=== PATIENT | male | born 1950 | race Caucasian/White ===

== ENCOUNTER 2018-08-05 05:50 | Day surgery (SDC) | payer MEDICARE, BC ==
[2018-08-04 10:53] LABS: HEMATOCRIT 45.5 % (42.0-54.0); HEMOGLOBIN 16.7 g/dL (13.5-17.5); MCH 32.2 pg (26.0-34.0); MCHC 36.7 g/dL (31.0-37.0); MCV 87.7 fL (80.0-100.0); MEAN PLATELET VOLUME 9.2 fL (7.4-10.4); RBC 5.19 10x6/uL (4.20-6.10); WBC 7.5 10x3/uL (4.8-10.8)
[2018-08-04 11:13] LABS: ANION GAP 16.3 mmol/L (8-16); CALCIUM 9.2 mg/dL (8.5-10.1); CARBON DIOXIDE 24.4 mmol/L (21.0-32.0); CREATININE - SERUM 1.6 mg/dL (0.6-1.3); POTASSIUM - SERUM 3.7 mmol/L (3.5-5.1)
[~2018-08-05] VITALS: Ht 182.9 cm; Wt 127.9 kg
[~2018-08-05 05:50] MED LIST: ACTOS45 MG PO; ASPIRIN 81 MG E81 MG PO; FIBRICOR105 MG; GLIPIZIDE10 MG PO; GLUCOTROL 5 MG T5 MG OR; HYTRIN1 MG PO; LANTUS INSULIN10 ML SC; LIPITOR80 MG; LISINOPRIL2.5 MG OR; NIACIN500 MG PO; NORCO 10/325 TA1 TA1 PO; NORVASC10 MG PO; NOVOLOG100 U/M1 SC; OMEGA-3100 MG; OXYBUTYNIN CHLOR5 MG; PRILOSEC20 MG PO; PRINZIDE 20/12.1 TAB PO; TOPROL XL50 MG PO; VIAGRA100 MG PO; ZESTORETIC 20-1 EACH PO; ZESTRIL40 MG PO; ZOLOFT100 MG PO
[2018-08-05] MEDS ORDERED: FLUNISOLIDE29 MCG NASAL (05:51)
[2018-08-05 06:04] VITALS: BP 147/88; Ht 182.9 cm; Wt 127.9 kg
--- NOTE | 2018-08-05 10:58 | OP ---
PATIENT NAME: TULIO GÓMEZ MEDICAL RECORD: [id number] :46 LOCATION:[facility] ADMISSION DATE: SURGEON: DAGO HURTADO MD DATE OF OPERATION: 08/05/2018 SURGEON: Dago Hurtado MD ANESTHESIA: General anesthesia by Michael Appiah CRNA PROCEDURES: Cystoscopy, direct vision internal urethrotomy, transrectal ultrasound and prostate biopsy. FINDINGS: Bulbar urethral stricture, which I incised. Nonobstructive bilateral lateral lobes. Bladder neck contracture. A 26 mL prostate with intraprostatic stones. No hypoechoic areas. SPECIMENS: Prostate biopsy cores. ESTIMATED BLOOD LOSS: Minimal. CLINICAL HISTORY: This is a 67-year-old male, who was referred by Dr. Valle for an elevated PSA level of 4.03. FAMILY HISTORY: Negative for BPH and prostate cancer. He does have trouble voiding with a slow urinary flow and dribbling postvoid. He has been on terazosin for 2-3 years and he is getting side effects with terazosin. He has a history of sleep apnea for which he uses oxygen at night. He was in [place] with the [employer] from [id number] and he was exposed to Agent [place]. He is here to have a transrectal ultrasound and prostate biopsy. I will also be performing cystoscopy to check the configuration of the prostate. His IPPS score is 17 and his quality of life score is 4. He is not allergic to any medications. He was given Ancef party plan salesperson to the OR. DESCRIPTION OF PROCEDURE: Initially, we placed the patient under TIVA. He was then placed in the dorsal lithotomy position. He was continuously restless as he would become apneic from the sleep apnea and then he would move around to get himself breathing again. I performed cystoscopy initially with a 17-[place]izen [place] cystoscope with 30-degree lens. We encountered a tight bulbar urethral stricture, which the scope could not pass through. I then switched to a 21-[place]izen [place] cystoscope, and through the lumen of the scope I passed a Sensor wire through the stricture lumen into the bladder. The cystoscope was then removed. The patient's degree of restlessness would not allow me to do any precise work and therefore he was converted to general anesthesia. We then placed in the optic urethrotome and using the cold knife at the 12 o'clock position, the stricture was incised through. Once we got through the bulbar urethral stricture, the prostatic urethra shows no encroachment into the lumen from the lateral lobes. However, he has a very tall elevated bladder neck. In my view, if the urethral stricture incision does not resolve his bladder outlet obstruction, then he probably should have a bladder neck incision. From what I could see with a 12-degree scope, I could not see any bladder tumors in the bladder. The scope was then removed. The Sensor guidewire was left in the urethra. I decided not to put a catheter at this time as doing a prostate biopsy may result in the needle passing through this catheter and creating damage. We then switched to performing the transrectal ultrasound. The probe OPERATIVE REPORT [id number] TULIO GÓMEZ was introduced into the rectum. Prostate size measurements were obtained. We obtained a size of 26 mL. There are intraprostatic stones within the prostate. Sextant biopsies were obtained with at least 3 cores from each sextant. Once we obtained all the cores, the procedure was terminated from the view of the prostate biopsy. I switched gloves over the Sensor wire, I inserted a 16[place] tip catheter into the bladder. Once the catheter was fully in the bladder, the balloon was inflated with 10 cc of sterile water. The Sensor wire was removed entirely. The catheter was put to bag drainage. I will see the patient in followup next week to remove the catheter and to go over the pathology results with him. TRANSINT:[id number] Voice Confirmation ID: [id number] DOCUMENT ID: [id number] DAGO HURTADO MD at 1058 CC: [id number] DICTATION DATE: 08/05/18841 MANAGER GREEN: 08/05/18957 PRE [facility] [address] [place] [id number]
--- NOTE | 2018-08-05 16:44 | NUR ---
1110 DRESSED, AWAKE, & ALERT. GIVEN DISCHARGE INFORMATION INCLUDING: MED REC, RX'S 2: TYLENOL #3 & OXYBUTYNIN 5MG, RTC APPT., [facility] OUT PATIENT D/C INSTRUCTIONS, & POSTCYSTOSCOPY & HOW TO CARE FOR LEGER CATHETER, MALE D/C INSTRUCTIONS. PT & VOICED UNDERSTANDING. TO PRIVATE CAR PER WHEELCHAIR BY VOLUNTEER. HOME WITH , ARDEN GÓMEZ. Hayele BUCHANAN R.N.
== END 2018-08-05 11:10 | disposition home or self-care (01) ==
LOC: D.OPS 05:50 → D.PAN 13:00 → D.OPS 13:00 → D.PAN 13:15
PROVIDERS: Anesthesiology; ATTEND Urology
DX: C61 Malignant neoplasm of prostate (principal); N35.912 Unspecified bulbous urethral stricture, male; N32.0 Bladder-neck obstruction; N42.0 Calculus of prostate; G47.30 Sleep apnea, unspecified; Z01.812 Encounter for preprocedural laboratory examination

== ENCOUNTER → 2018-08-27 09:39 | Outpatient (CLI) | payer MEDICARE, BC ==
[2018-08-05 06:04] VITALS: BMI 38.3
[~2018-08-27 09:39] MED LIST changes: +FLUNISOLIDE29 MCG NASAL
== END | disposition home or self-care (01) ==
LOC: D.NM 09:39
PROVIDERS: ATTEND Urology
DX: C61 Malignant neoplasm of prostate (principal)

== ENCOUNTER 2018-10-17 17:38 | Inpatient (IN) | payer MEDICARE, BC ==
[2018-10-17] MEDS ORDERED: NIASPAN500 MG PO (17:53)
[2018-10-17] MEDS ORDERED: IBUPROFEN800 MG PO (17:53)
[2018-10-17] MEDS ORDERED: TRILIPIX135 MG PO (17:54)
[2018-10-17] MEDS ORDERED: ALBUTEROL SULF8.5 GM INH (17:54)
[2018-10-17] MEDS ORDERED: GLUCOTROL 5 MG T5 MG PO (17:54)
[2018-10-17] MEDS ORDERED: LIPITOR80 MG PO (17:55)
[2018-10-17] MEDS ORDERED: ALIGN4 MG PO (17:55)
[2018-10-17 18:34] LABS: BASOPHILS 0.1 % (0-2); EOSINOPHILS 0.3 % (0-7); HEMATOCRIT 42.1 % (42.0-54.0); HEMOGLOBIN 15.3 g/dL (13.5-17.5); IMMATURE GRANULOCYTES 0.2 % (0-5); MCHC 36.3 g/dL (31.0-37.0); MCV 88.1 fL (80.0-100.0); MEAN PLATELET VOLUME 9.7 fL (7.4-10.4); MONOCYTES 8.3 % (2-11); NEUTROPHILS 78.1 % (40-80); PLATELET COUNT 144 10x3/uL (130-400); RBC 4.78 10x6/uL (4.20-6.10); RDW 12.8 % (11.5-14.5); WBC 11.5 10x3/uL (4.8-10.8)
[2018-10-17 18:50] LABS: ALKALINE PHOSPHATASE 52 U/L (46-116); ALT (SGPT) 33 U/L (10-68); BILIRUBIN - TOTAL 0.67 mg/dL (0.2-1.3); CALC OSMOLALITY 273 mosm/kg (275-300); CALCIUM 9.3 mg/dL (8.5-10.1); CARBON DIOXIDE 27.3 mmol/L (21.0-32.0); CHLORIDE - SERUM 95 mmol/L (98-107); CREATININE - SERUM 1.6 mg/dL (0.6-1.3); GLUCOSE 190 mg/dL (74-106); POTASSIUM - SERUM 3.2 mmol/L (3.5-5.1); SODIUM 133 mmol/L (136-145); UREA NITROGEN 21 mg/dL (7-18); eGFR NON AFRICAN AMERICAN 46 mL/min (90-120)
[2018-10-17 19:00] LABS: CKMB 2.4 U/L (0.0-3.6); CREATINE KINASE 330 UL (21-232); PRO BNP 459 pg/mL (0-125)
[2018-10-17 19:01] LABS: TROPONIN-I < 0.017 ng/mL (0.000-0.060)
--- NOTE | 2018-10-17 19:02 | NUR ---
HAND OFF REPORT GIVEN TO JENNIFER QUICK
[2018-10-17 19:29] LABS: APPEARANCE CLEAR (CLEAR); BILIRUBIN NEGATIVE (NEGATIVE); COLOR YELLOW (YELLOW); GLUCOSE 100 mg/dL (NEGATIVE); KETONE NEGATIVE (NEGATIVE); NITRITE NEGATIVE (NEGATIVE); PROTEIN 2+ mg/dL (NEGATIVE); UROBILINOGEN NORMAL (NORMAL)
[2018-10-17 19:30] LABS: RED CELLS - URINE 0-5 /hpf (0-5); WHITE CELLS - URINE 0-5 /hpf (0-5)
[2018-10-17 19:31] LABS: AMORPHOUS SEDIMENT <1+ /lpf (NONE SEEN); BACTERIA MODERATE /hpf (NONE SEEN); EPITHELIAL CELLS 0-5 /hpf (0-5); GRANULAR CAST 0-5 /lpf (NONE SEEN)
--- NOTE | 2018-10-17 20:17 | NUR ---
PT GIVEN BLANKETS.
[2018-10-18 01:08] VITALS: BP 175/82; BMI 38.2
[2018-10-18 04:51] VITALS: BP 144/83
--- NOTE | 2018-10-18 07:15 | NUR ---
PATIENT RECIEVED FROM PREVIOUS SHIFT RESTING IN BED. NO FEVER AT THIS TIME. UNABLE TO ADMINISTER S/S INSULIN DUE TO UNAVAILABLE FROM PHARMACY.
[2018-10-18 07:28] LABS: PRO BNP 481 pg/mL (0-125)
[2018-10-18 07:36] LABS: TROPONIN-I < 0.017 ng/mL (0.000-0.060)
[2018-10-18 07:52] LABS: APTT 39.8 SECONDS (22.8-39.4); INR 1.2 (0.85-1.17); PROTIME 14.7 SECONDS (11.6-15.0)
[2018-10-18 07:53] LABS: D-DIMER-QUANTITATIVE 0.82 ug/mLFEU (0.20-0.54)
[2018-10-18 08:00] VITALS: BP 122/60
[2018-10-18 08:14] VITALS: BMI 38.1
[2018-10-18 09:50] VITALS: BMI 38.1
[2018-10-18 12:57] VITALS: BP 120/64
[2018-10-18 15:45] VITALS: BP 103/46
--- NOTE | 2018-10-18 19:35 | NUR ---
PATIENT RESTING IN BED WITH GUEST AT BEDSIDE. PATIENT DENIES NEEDS AT THIS TIME. BED IN LOWEST POSITION AND CALL LIGHT WITHIN REACH. ENCOURAGED THE PATIENT TO CALL IF HE HAS NEEDS. WILL CONTINUE TO MONITOR.
[2018-10-18 20:00] VITALS: BP 138/62
[2018-10-19] VITALS: BP 132/72
[2018-10-19 06:05] LABS: BASOPHILS 0.1 % (0-2); EOSINOPHILS 0.4 % (0-7); HEMATOCRIT 40.4 % (42.0-54.0); HEMOGLOBIN 14.6 g/dL (13.5-17.5); IMMATURE GRANULOCYTES 0.4 % (0-5); LYMPHOCYTES 13.3 % (15-50); MCH 31.5 pg (26.0-34.0); MCHC 36.1 g/dL (31.0-37.0); MCV 87.3 fL (80.0-100.0); MEAN PLATELET VOLUME 9.5 fL (7.4-10.4); MONOCYTES 7.9 % (2-11); NEUTROPHILS 77.9 % (40-80); RBC 4.63 10x6/uL (4.20-6.10); RDW 12.9 % (11.5-14.5); WBC 11.1 10x3/uL (4.8-10.8)
[2018-10-19 06:11] LABS: PLATELET COUNT 183 10x3/uL (130-400)
[2018-10-19 06:38] LABS: ALBUMIN 2.4 g/dL (3.4-5.0); ANION GAP 11.3 mmol/L (8-16); BILIRUBIN - TOTAL 0.28 mg/dL (0.2-1.3); CALCIUM 8.8 mg/dL (8.5-10.1); CARBON DIOXIDE 28.2 mmol/L (21.0-32.0); CREATININE - SERUM 1.7 mg/dL (0.6-1.3); POTASSIUM - SERUM 3.5 mmol/L (3.5-5.1)
--- NOTE | 2018-10-19 07:00 | NUR ---
RECEIVED REPORT. ASSUMED CARE OF PATIENT. CALL LIGHT WITHIN REACH. PATIENT RESTING WITH EYES CLOSED. SNORING. PATIENT EASILY AROUSED. NO IV FLUIDS, RIGHT AC SALINE LOCKED. PATIENT WITH FEMALE VISITOR IN CHAIR AT BEDSIDE. NO DISTRESS.
--- NOTE | 2018-10-19 09:30 | NUR ---
FSBS 256. 100 UNITS LANTUS ADMINISTERED ORDERED. NO DISTRESS.
[2018-10-19 09:41] VITALS: BP 149/81
--- NOTE | 2018-10-19 11:11 | MORECARE ---
CASE MANAGEMENT DISCHARGE SUMMARY PATIENT: TULIO GÓMEZ UNIT: [id number] ADM DATE: 10/17/18 AGE: 67 : 48 SEX: M ROOM/BED: D.1213 AUTHOR: SANKET BELL PHYSICIAN: REFERRING PHYSICIAN: MAEVE LANDIS MD DATE OF SERVICE: 10/19/18 Discharge Plan Patient Name: TULIO GÓMEZ [facility] [facility] 1950 Planned Disposition: Home Anticipated Discharge Date: Discharge Date: Expected LOS: Initial Reviewer: MIKE Initial Review Date: 10/19/2018 Generated: 10/19/18 12:10 pm DCPIA - Discharge Planning Initial Assessment Updated by [email or web address]: Stephanie Grider on 10/19/18 11:09 am * Is the patient Alert and Oriented? Yes * How many steps to enter\exit or inside your home? NA * PCP NIECY * Pharmacy [facility] * ADLs Independent * Equipment Walker * List name and contact numbers for known caregivers / representatives who currently or will assist patient after discharge: ARDEN [phone] * Verbal permission to speak to the caregivers and representatives has been obtained from the patient. Yes * Community resources currently utilized None * Additional services required to return to the preadmission environment? No * Can the patient safely return to the preadmission environment? Yes * Has this patient been hospitalized within the prior 30 days at any hospital? No Patient Name: TULIO GÓMEZ Page 23060 at 1111 All edits/amendments must be made on the electronic document DICTATION DATE: 10/19/18 1110 DATABASE PROGRAMMER: JAYME 10/19/18 1110 RPT#: [id number] DC DATE: STATUS: ADM IN [facility] [address] [place] [address] END OF REPORT
--- NOTE | 2018-10-19 11:17 | MORECARE ---
CASE MANAGEMENT DISCHARGE SUMMARY PATIENT: TULIO GÓMEZ UNIT: [id number] ADM DATE: 10/17/18 AGE: 67 : 48 SEX: M ROOM/BED: D.1213 AUTHOR: ARABELLADOC PHYSICIAN: REFERRING PHYSICIAN: MAEVE LANDIS MD DATE OF SERVICE: 10/19/18 Discharge Plan Patient Name: TULIO GÓMEZ Facility: [facility]:[place] : 1950 Planned Disposition: Home Anticipated Discharge Date: Discharge Date: Expected LOS: Initial Reviewer: [email or web address] Initial Review Date: 10/19/2018 Generated: 10/19/18 12:17 pm Comments DCP- Discharge Planning Updated by [email or web address]: Stephanie Grider on 10/19/18 10:[address] Patient Name: TULIO GÓMEZ Admission Status: ER Accout number: [id number] Admission Date: 10-17-2018 : 1950 Admission Diagnosis: Attending: MAEVE LANDIS Current LOS: 2 Anticipated DC Date: Planned Disposition: Home Primary Insurance: MEDICARE A & B Discharge Planning Comments: CM met with patient about discharge planning. CM explained CM role and verbal consent was given to do dc assessment. CM educated on Home Health, DME and rehab services that are available. Patient states hIs discharge plan is to return to home with .. States home environment is safe discharge. Denies any discharge planning needs at this time.. has home 02 thru . States will drive him home upon discharge. CM will continue to follow and assist as needed with discharge planning needs. Auto Specialty Services Manager: Stephanie Grider DCPIA - Discharge Planning Initial Assessment Updated by [email or web address]: Stephanie Grider on 10/19/18 11:09 am * Is the patient Alert and Oriented? Yes * How many steps to enter\exit or inside your home? NA * PCP NIECY * Pharmacy [facility] * ADLs Independent * Equipment Walker * List name and contact numbers for known caregivers / representatives who currently or will assist patient after discharge: ARDEN [phone] * Verbal permission to speak to the caregivers and representatives has been obtained from the patient. Yes * Community resources currently utilized None * Additional services required to return to the preadmission environment? No * Can the patient safely return to the preadmission environment? Yes * Has this patient been hospitalized within the prior 30 days at any hospital? No Last DP export: 10/19/18 10:11 a Patient Name: TULIO GÓMEZ Page 36108 at 1117 All edits/amendments must be made on the electronic document DICTATION DATE: 10/19/181116 KNIFE CHANGER: JAYME 10/19/181116 RPT#: [id number] DC DATE: STATUS: ADM IN [facility] [address] [place] [address] END OF REPORT
--- NOTE | 2018-10-19 11:33 | NUR ---
FSBS 287. 6 UNITS HUMULIN R ADMINISTERED PER SLIDING SCALE. TYLENOL ADMINISTERED FOR HEADACHE AT THIS TIME. NO DISTRESS. CALL LIGHT YUSEF EUGENE.
[2018-10-19 13:31] VITALS: BP 145/76
--- NOTE | 2018-10-19 16:40 | NUR ---
FSBS 296. 6 UNITS HUMULIN REGULAR INSULIN ADMINISTERED PER SLIDING SCALE. NO DISTRESS. DIABETES COUNSELING PROVIDED TO PATIENT. CALL LIGHT WITHIN REACH. NO DISTRESS.
[2018-10-19 17:30] VITALS: BP 155/83
--- NOTE | 2018-10-19 19:10 | NUR ---
PATIENT RESTING IN BED WITH GUEST AT BEDSIDE AND NO S/S OF DISTRESS. PATIENT DENIES NEEDS AT THIS TIME. BED IN LOWEST POSITION AND CALL LIGHT WITHIN REACH. ENCOURAGED THE PATIENT TO CALL IF HE HAS NEEDS. WILL CONTINUE TO MONITOR.
[2018-10-19 20:00] VITALS: BP 149/83
[2018-10-20] VITALS: BP 106/61
[2018-10-20 04:00] VITALS: BP 135/63
[2018-10-20 06:23] LABS: BASOPHILS 0.1 % (0-2); HEMATOCRIT 39.1 % (42.0-54.0); HEMOGLOBIN 13.5 g/dL (13.5-17.5); IMMATURE GRANULOCYTES 0.4 % (0-5); LYMPHOCYTES 19.5 % (15-50); MCH 30.8 pg (26.0-34.0); MCHC 34.5 g/dL (31.0-37.0); MEAN PLATELET VOLUME 9.5 fL (7.4-10.4); MONOCYTES 8.3 % (2-11); NEUTROPHILS 68.7 % (40-80); PLATELET COUNT 203 10x3/uL (130-400); RBC 4.38 10x6/uL (4.20-6.10); RDW 13.2 % (11.5-14.5)
[2018-10-20 06:35] LABS: ALBUMIN 2.3 g/dL (3.4-5.0); ANION GAP 10.6 mmol/L (8-16); BILIRUBIN - TOTAL 0.25 mg/dL (0.2-1.3); CALCIUM 8.6 mg/dL (8.5-10.1); CARBON DIOXIDE 27.9 mmol/L (21.0-32.0); CREATININE - SERUM 1.3 mg/dL (0.6-1.3); MCV 89.3 fL (80.0-100.0); POTASSIUM - SERUM 3.5 mmol/L (3.5-5.1); PROTEIN - SERUM 6.4 g/dL (6.4-8.2)
[2018-10-20 07:23] VITALS: BP 132/66
--- NOTE | 2018-10-20 12:35 | NUR ---
ALERT AND ORIENTED X4. SITTING UP IN BED. SPOUSE AT BEDSIDE. PATIENT REQUESTING TO BE DISCHARGED. NOTIFY DOCTOR OF PATIENT REQUEST. INFORM PATIENT AND FAMILY DOCTOR CURRENTLY REVIEWING CHART. DENIES ANY OTHER NEEDS AT THIS TIME. CONTINUE PLAN OF CARE AND SAFETY PRECAUTIONS.
[2018-10-20 17:02] VITALS: BP 154/93
--- NOTE | 2018-10-20 17:09 | NUR ---
ALERT AND ORIENTED X4. SITTING UP ON SIDE OF BED. SHOWER AND LINEN CHANGE COMPLETE. SPOUSE AT BEDSIDE. DENIES SOB OR PAIN. DENIES ANY NEEDS AT THIS TIME. CONTINUE PLAN OF CARE AND SAFETY PRECAUTIONS.
--- NOTE | 2018-10-20 19:53 | NUR ---
PATIENT RESTING IN BED WITH NO S/S OF DISTRESS AND AT BEDSIDE. PATIENT DENIES NEEDS AT THIS TIME. BED IN LOWEST POSITION AND CALL LIGHT WITHIN REACH. ENCOURAGED THE PATIENT TO CALL IF HE HAS NEEDS.
[2018-10-20 20:00] VITALS: BP 132/71
[2018-10-21] VITALS: BP 149/64
[2018-10-21 04:00] VITALS: BP 154/70
[2018-10-21 06:34] LABS: BASOPHILS 0.1 % (0-2); EOSINOPHILS 0.7 % (0-7); HEMATOCRIT 40.4 % (42.0-54.0); HEMOGLOBIN 14.1 g/dL (13.5-17.5); IMMATURE GRANULOCYTES 0.9 % (0-5); LYMPHOCYTES 11.5 % (15-50); MCH 31.1 pg (26.0-34.0); MCHC 34.9 g/dL (31.0-37.0); MCV 89.2 fL (80.0-100.0); MEAN PLATELET VOLUME 9.7 fL (7.4-10.4); MONOCYTES 2.8 % (2-11); PLATELET COUNT 218 10x3/uL (130-400); RBC 4.53 10x6/uL (4.20-6.10); RDW 13.4 % (11.5-14.5); WBC 8.2 10x3/uL (4.8-10.8)
[2018-10-21 06:53] LABS: ALBUMIN 2.5 g/dL (3.4-5.0); ANION GAP 13.5 mmol/L (8-16); BILIRUBIN - TOTAL 0.22 mg/dL (0.2-1.3); CALCIUM 8.8 mg/dL (8.5-10.1); CARBON DIOXIDE 25.2 mmol/L (21.0-32.0); CREATININE - SERUM 1.4 mg/dL (0.6-1.3); PROTEIN - SERUM 6.9 g/dL (6.4-8.2)
[2018-10-21 06:55] LABS: POTASSIUM - SERUM 4.7 mmol/L (3.5-5.1)
--- NOTE | 2018-10-21 07:35 | NUR ---
PT ALERT AND ORIENTED. UP AD DAVIDE. SOB ON EXERTION. ON ELECTROLYTE PROTOCOL. ON 4L O2, NC. IV TO RIGHT AC, SL. SITE PATENT WITHOUT REDNESS OR SWELLING. PT ACHS. NO C/O PAIN. NO S/S OF ACUTE DISTRESS NOTED. CALL LIGHT IN REACH. PT DENIES ANYTHING FURTHER AT THIS TIME. WILL CONTINUE TO MONITOR.
[2018-10-21 08:27] VITALS: BP 161/96
[2018-10-21 16:12] VITALS: BP 147/72
--- NOTE | 2018-10-21 18:36 | NUR ---
I have reviewed this patient and I concur with the Shift Assessment completed by the Licensed Practical Nurse today this shift.
--- NOTE | 2018-10-21 19:25 | NUR ---
PT RESTING IN BED, EYES OPEN. AT BEDSIDE. NO C/O PAIN. NO S/S OF ACUTE DISTRESS NOTED. PT DENIES ANYTHING FURTHER AT THIS TIME. CALL LIGHT IN REACH.
[2018-10-21 20:00] VITALS: BP 167/95
[2018-10-22] VITALS: BP 136/64
[2018-10-22 04:30] VITALS: BP 147/69
[2018-10-22 07:38] LABS: BASOPHILS 0.2 % (0-2); EOSINOPHILS 0.2 % (0-7); HEMATOCRIT 43.9 % (42.0-54.0); HEMOGLOBIN 15.4 g/dL (13.5-17.5); IMMATURE GRANULOCYTES 1.2 % (0-5); LYMPHOCYTES 13.4 % (15-50); MCH 31.2 pg (26.0-34.0); MCHC 35.1 g/dL (31.0-37.0); MCV 88.9 fL (80.0-100.0); MEAN PLATELET VOLUME 9.5 fL (7.4-10.4); MONOCYTES 3.5 % (2-11); NEUTROPHILS 81.5 % (40-80); RBC 4.94 10x6/uL (4.20-6.10); RDW 13.1 % (11.5-14.5)
[2018-10-22 07:40] LABS: WBC 11.6 10x3/uL (4.8-10.8)
[2018-10-22 07:41] LABS: PLATELET COUNT 275 10x3/uL (130-400)
[2018-10-22 07:53] VITALS: BP 143/74
[2018-10-22 08:00] LABS: ALBUMIN 2.9 g/dL (3.4-5.0); BILIRUBIN - TOTAL 0.25 mg/dL (0.2-1.3); CALCIUM 9.1 mg/dL (8.5-10.1); CARBON DIOXIDE 26.2 mmol/L (21.0-32.0); CREATININE - SERUM 1.4 mg/dL (0.6-1.3); PROTEIN - SERUM 7.3 g/dL (6.4-8.2)
[2018-10-22 08:03] LABS: ANION GAP 12.7 mmol/L (8-16); POTASSIUM - SERUM 3.9 mmol/L (3.5-5.1)
[2018-10-22] MEDS ORDERED: VIBRAMYCIN 100100 MG PO (11:50)
[2018-10-22] MEDS ORDERED: OMNICEF300 MG PO (11:50)
--- NOTE | 2018-10-22 11:55 | MORECARE ---
CASE MANAGEMENT DISCHARGE SUMMARY PATIENT: TULIO GÓMEZ UNIT: [id number] ADM DATE: 10/17/18 AGE: 67 : 48 SEX: M ROOM/BED: D.1213 AUTHOR: SANKET BELL PHYSICIAN: REFERRING PHYSICIAN: MAEVE LANDIS MD DATE OF SERVICE: 10/22/18 Discharge Plan Patient Name: TULIO GÓMEZ Facility: [facility]:[place] : 1950 Planned Disposition: Home Anticipated Discharge Date: Discharge Date: Expected LOS: Initial Reviewer: [email or web address] Initial Review Date: 10/19/2018 Generated: 10/22/18 12:55 pm Comments DCP- Discharge Planning Updated by [email or web address]: Leny Yen on 10/22/18 10:[address] Patient Name: TULIO GÓMEZ Admission Status: ER Accout number: [id number] Admission Date: 10-17-2018 : 1950 Admission Diagnosis:SHORTNESS OF BREATH Attending: MAEVE LANDIS Current LOS: 5 Anticipated DC Date: Planned Disposition: Home Primary Insurance: MEDICARE A & B Discharge Planning Comments: CM MET WITH PATIENT ABOUT NEEDS. HE HAS CPAP AND O2 AT HOME BUT NEEDS A NEBULIZER. [facility] SIGNED FOR [facility] PATIENT. CM WILL SET UP FOR NEBULIZER. CM TO FOLLOW AND ASSIST NEEDED WITH DC PLANNING/NEEDS. Gift Consultant: Leny Yen DCP- Discharge Planning Updated by [email or web address]: Stephanie Grider on 10/19/18 10:[address] Patient Name: TULIO GÓMEZ Admission Status: ER Accout number: [id number] Admission Date: 10-17-2018 : 1950 Admission Diagnosis: Attending: MAEVE LANDIS Current LOS: 2 Anticipated DC Date: Planned Disposition: Home Primary Insurance: MEDICARE A & B Discharge Planning Comments: CM met with patient about discharge planning. CM explained CM role and verbal consent was given to do dc assessment. CM educated on Home Health, DME and rehab services that are available. Patient states hIs discharge plan is to return to home with .. States home environment is safe discharge. Denies any discharge planning needs at this time.. has home 02 thru . States will drive him home upon discharge. CM will continue to follow and assist as needed with discharge planning needs. Gift Consultant: Stephanie Grider DCPIA - Discharge Planning Initial Assessment Updated by [email or web address]: Stephanie Grider on 10/19/18 11:09 am * Is the patient Alert and Oriented? Yes * How many steps to enter\exit or inside your home? NA * PCP NIECY * Pharmacy [facility] * ADLs Independent * Equipment Walker * List name and contact numbers for known caregivers / representatives who currently or will assist patient after discharge: ARDEN [phone] * Verbal permission to speak to the caregivers and representatives has been obtained from the patient. Yes * Community resources currently utilized None * Additional services required to return to the preadmission environment? No * Can the patient safely return to the preadmission environment? Yes * Has this patient been hospitalized within the prior 30 days at any hospital? No External Providers External Provider: [facility] Patient-[place] Next Contact Date: Service Request Date: Service Type: Resolution: Reviewer: Comments: Last DP export: 10/19/18 10:17 a Patient Name: TULIO GÓMEZ Page 06482 at 1155 All edits/amendments must be made on the electronic document DICTATION DATE: 10/22/181153 RETAIL FIELD SUPERVISOR: JAYME 10/22/181153 RPT#: [id number] DC DATE: STATUS: ADM IN [facility] [address] [place] [address] END OF REPORT
[2018-10-22 11:58] VITALS: BP 142/66
--- NOTE | 2018-10-22 15:56 | MORECARE ---
CASE MANAGEMENT DISCHARGE SUMMARY PATIENT: TULIO GÓMEZ UNIT: [id number] ADM DATE: 10/17/18 AGE: 67 : 48 SEX: M ROOM/BED: D.1213 AUTHOR: SANKET BELL PHYSICIAN: REFERRING PHYSICIAN: MAEVE LANDIS MD DATE OF SERVICE: 10/22/18 Discharge Plan Patient Name: TULIO GÓMEZ Facility: [facility]:[place] : 1950 Planned Disposition: Home Anticipated Discharge Date: Discharge Date: 10/22/2018 Expected LOS: Initial Reviewer: [email or web address] Initial Review Date: 10/19/2018 Generated: 10/22/18 4:55 pm Comments DCP- Discharge Planning Updated by [email or web address]: Leny Yen on 10/22/18 10:[address] Patient Name: TULIO GÓMEZ Admission Status: ER Accout number: [id number] Admission Date: 10-17-2018 : 1950 Admission Diagnosis:SHORTNESS OF BREATH Attending: MAEVE LANDIS Current LOS: 5 Anticipated DC Date: Planned Disposition: Home Primary Insurance: MEDICARE A & B Discharge Planning Comments: CM MET WITH PATIENT ABOUT NEEDS. HE HAS CPAP AND O2 AT HOME BUT NEEDS A NEBULIZER. [facility] SIGNED FOR [facility] PATIENT. CM WILL SET UP FOR NEBULIZER. CM TO FOLLOW AND ASSIST NEEDED WITH DC PLANNING/NEEDS. Herbarium Worker: Leny Yen DCP- Discharge Planning Updated by [email or web address]: Stephanie Grider on 10/19/18 10:[address] Patient Name: TULIO GÓMEZ Admission Status: ER Accout number: [id number] Admission Date: 10-17-2018 : 1950 Admission Diagnosis: Attending: MAEVE LANDIS Current LOS: 2 Anticipated DC Date: Planned Disposition: Home Primary Insurance: MEDICARE A & B Discharge Planning Comments: CM met with patient about discharge planning. CM explained CM role and verbal consent was given to do dc assessment. CM educated on Home Health, DME and rehab services that are available. Patient states hIs discharge plan is to return to home with .. States home environment is safe discharge. Denies any discharge planning needs at this time.. has home 02 thru . States will drive him home upon discharge. CM will continue to follow and assist as needed with discharge planning needs. Herbarium Worker: Stephanie Grider DCPIA - Discharge Planning Initial Assessment Updated by [email or web address]: Stephanie Grider on 10/19/18 11:09 am * Is the patient Alert and Oriented? Yes * How many steps to enter\exit or inside your home? NA * PCP NIECY * Pharmacy [facility] * ADLs Independent * Equipment Walker * List name and contact numbers for known caregivers / representatives who currently or will assist patient after discharge: ARDEN [phone] * Verbal permission to speak to the caregivers and representatives has been obtained from the patient. Yes * Community resources currently utilized None * Additional services required to return to the preadmission environment? No * Can the patient safely return to the preadmission environment? Yes * Has this patient been hospitalized within the prior 30 days at any hospital? No Coverage Notice Reviewer: [email or web address] Chio Yen Notice Issued Date-Time: 10/22/2018 11:58 Notice Type: IM Discharge Notice Notice Delivered To: Patient Relationship to Patient: Behavioral Sciences Instructor Name: Delivery Method: HAND - Hand Delivered Melida Days: Prior Verbal Notification: Recipient Understood Notice: Yes Recipient Signature: Yes Med Rec Note Co-signed by Attending: Coverage Notice Comment: Reviewer: [email or web address] Yen Notice Issued Date-Time: 10/22/2018 11:58 Notice Type: Patient Choice Letter Notice Delivered To: Patient Relationship to Patient: Behavioral Sciences Instructor Name: Delivery Method: HAND - Hand Delivered Melida Days: Prior Verbal Notification: Recipient Understood Notice: Yes Recipient Signature: Yes Med Rec Note Co-signed by Attending: Coverage Notice Comment: [facility]IENT. Last DP export: 10/22/18 10:55 a Patient Name: TULIO GÓMEZ Page 13629 at 1556 All edits/amendments must be made on the electronic document DICTATION DATE: 10/22/181554 TELEPHOTO ENGINEER: JAYME 10/22/181554 RPT#: [id number] DC DATE:10/22/18 STATUS: DIS IN [facility] [address] [place] [address] END OF REPORT
--- NOTE | 2018-10-22 16:34 | MORECARE ---
CASE MANAGEMENT DISCHARGE SUMMARY PATIENT: TULIO GÓMEZ UNIT: [id number] ADM DATE: 10/17/18 AGE: 67 : 48 SEX: M ROOM/BED: D.1213 AUTHOR: SANKET BELL PHYSICIAN: REFERRING PHYSICIAN: MAEVE LANDIS MD DATE OF SERVICE: 10/22/18 Discharge Plan Patient Name: TULIO GÓMEZ Facility: [facility]:[place] : 1950 Planned Disposition: Home Anticipated Discharge Date: 10/22/18 Discharge Date: 10/22/2018 Expected LOS: 5 Initial Reviewer: [email or web address] Initial Review Date: 10/19/2018 Generated: 10/22/18 5:34 pm Comments DCP- Discharge Planning Updated by [email or web address]: Leny Yen on 10/22/18 10:[address] Patient Name: TULIO GÓMEZ Admission Status: ER Accout number: [id number] Admission Date: 10-17-2018 : 1950 Admission Diagnosis:SHORTNESS OF BREATH Attending: MAEVE LANDIS Current LOS: 5 Anticipated DC Date: Planned Disposition: Home Primary Insurance: MEDICARE A & B Discharge Planning Comments: CM MET WITH PATIENT ABOUT NEEDS. HE HAS CPAP AND O2 AT HOME BUT NEEDS A NEBULIZER. [facility] SIGNED FOR [facility] PATIENT. CM WILL SET UP FOR NEBULIZER. CM TO FOLLOW AND ASSIST NEEDED WITH DC PLANNING/NEEDS. Environmental Conservation Professor: Leny Yen DCP- Discharge Planning Updated by [email or web address]: Stephanie Grider on 10/19/18 10:[address] Patient Name: TULIO GÓMEZ Admission Status: ER Accout number: [id number] Admission Date: 10-17-2018 : 1950 Admission Diagnosis: Attending: MAEVE LANDIS Current LOS: 2 Anticipated DC Date: Planned Disposition: Home Primary Insurance: MEDICARE A & B Discharge Planning Comments: CM met with patient about discharge planning. CM explained CM role and verbal consent was given to do dc assessment. CM educated on Home Health, DME and rehab services that are available. Patient states hIs discharge plan is to return to home with .. States home environment is safe discharge. Denies any discharge planning needs at this time.. has home 02 thru . States will drive him home upon discharge. CM will continue to follow and assist as needed with discharge planning needs. Environmental Conservation Professor: Stephanie PIÑA - Discharge Planning Initial Assessment Updated by [email or web address]: Stephanie Grider on 10/19/18 11:09 am * Is the patient Alert and Oriented? Yes * How many steps to enter\exit or inside your home? NA * PCP NIECY * Pharmacy [facility] * ADLs Independent * Equipment Walker * List name and contact numbers for known caregivers / representatives who currently or will assist patient after discharge: ARDEN [phone] * Verbal permission to speak to the caregivers and representatives has been obtained from the patient. Yes * Community resources currently utilized None * Additional services required to return to the preadmission environment? No * Can the patient safely return to the preadmission environment? Yes * Has this patient been hospitalized within the prior 30 days at any hospital? No Coverage Notice Reviewer: [email or web address] Yen Notice Issued Date-Time: 10/22/2018 11:58 Notice Type: IM Discharge Notice Notice Delivered To: Patient Relationship to Patient: Orthodontic Lab Technician Name: Delivery Method: HAND - Hand Delivered Melida Days: Prior Verbal Notification: Recipient Understood Notice: Yes Recipient Signature: Yes Med Rec Note Co-signed by Attending: Coverage Notice Comment: Reviewer: JOELLE Yen Notice Issued Date-Time: 10/22/2018 11:58 Notice Type: Patient Choice Letter Notice Delivered To: Patient Relationship to Patient: Orthodontic Lab Technician Name: Delivery Method: HAND - Hand Delivered Melida Days: Prior Verbal Notification: Recipient Understood Notice: Yes Recipient Signature: Yes Med Rec Note Co-signed by Attending: Coverage Notice Comment: [facility]. Last DP export: 10/22/18 2:56 p Patient Name: TULIO GÓMEZ Page 16111 at 1634 All edits/amendments must be made on the electronic document DICTATION DATE: 10/22/181632 COMPLAINT SPECIALIST: JAYME 10/22/181632 RPT#: [id number] DC DATE:10/22/18 STATUS: DIS IN [facility] [address] [place] [address] END OF REPORT
== END 2018-10-22 15:29 | disposition home or self-care (01) | DRG 193 ==
LOC: D.ER 17:38 → D.M3 21:22
PROVIDERS: Family Medicine; ADMIT Internal Medicine Nephrology; ATTEND Internal Medicine Nephrology
DX: J18.9 Pneumonia, unspecified organism (principal); J96.21 Acute and chronic respiratory failure with hypoxia; J44.1 Chronic obstructive pulmonary disease with (acute) exacerbation; N39.0 Urinary tract infection, site not specified; N17.9 Acute kidney failure, unspecified; E87.1 Hypo-osmolality and hyponatremia; J98.11 Atelectasis; Z99.81 Dependence on supplemental oxygen; E87.6 Hypokalemia; E78.5 Hyperlipidemia, unspecified; C61 Malignant neoplasm of prostate; I11.0 Hypertensive heart disease with heart failure; I50.9 Heart failure, unspecified; G47.33 Obstructive sleep apnea (adult) (pediatric); E66.01 Morbid (severe) obesity due to excess calories; Z68.38 Body mass index [BMI] 38.0-38.9, adult; E11.40 Type 2 diabetes mellitus with diabetic neuropathy, unspecified; Z87.891 Personal history of nicotine dependence

== ENCOUNTER → 2019-02-11 17:22 | Outpatient (CLI) | payer MEDICARE, BC ==
[~2019-02-11 17:22] MED LIST changes: +ALBUTEROL SULF8.5 GM INH; +ALIGN4 MG PO; +GLUCOTROL 5 MG T5 MG PO; +IBUPROFEN800 MG PO; +LIPITOR80 MG PO; +NIASPAN500 MG PO; +OMNICEF300 MG PO; +TRILIPIX135 MG PO; +VIBRAMYCIN 100100 MG PO
== END | disposition home or self-care (01) ==
LOC: D.LABREF 17:22
PROVIDERS: ATTEND Urology
DX: R31.9 Hematuria, unspecified (principal); D72.829 Elevated white blood cell count, unspecified

== ENCOUNTER → 2019-03-06 14:08 | Outpatient (CLI) | payer MEDICARE, BC | END | disposition home or self-care (01) | LOC: D.LABREF 14:08 | PROVIDERS: ATTEND Urology | DX: R31.9 Hematuria, unspecified (principal) ==

== ENCOUNTER 2019-03-24 05:11 | Day surgery (SDC) | payer MEDICARE, BC ==
[~2019-03-24] VITALS: Ht 182.9 cm; Wt 122.5 kg
[2019-03-24 05:42] LABS: HEMATOCRIT 46.4 % (42.0-54.0); HEMOGLOBIN 16.2 g/dL (13.5-17.5); MCH 30.7 pg (26.0-34.0); MCHC 34.9 g/dL (31.0-37.0); MEAN PLATELET VOLUME 9.4 fL (7.4-10.4); RBC 5.27 10x6/uL (4.20-6.10); RDW 14.3 % (11.5-14.5); WBC 6.7 10x3/uL (4.8-10.8)
[2019-03-24 05:46] LABS: ANION GAP 13.7 mmol/L (8-16); CARBON DIOXIDE 26.3 mmol/L (21.0-32.0); CREATININE - SERUM 1.9 mg/dL (0.6-1.3)
[2019-03-24 06:56] VITALS: BP 146/91; Ht 182.9 cm; Wt 122.5 kg
--- NOTE | 2019-03-24 08:37 | NUR ---
0885 DR[address] HURTADO ROUNDS 0885 PT A/A, O2 96% SAT O2 LOWERED TO 3L [place] DIET ORDERED.
--- NOTE | 2019-03-24 08:48 | NUR ---
0845 [place] DIET SERVED.
--- NOTE | 2019-03-24 09:30 | NUR ---
0930 DC INSTS REVIEWED RX GIVEN VOICED UNDERSTANDING RELEASED IN WC WITH [employer] CLAIMS ADJUSTER SUPERVISOR HOME.
--- NOTE | 2019-03-24 09:34 | OP ---
PATIENT NAME: TULIO GÓMEZ MEDICAL RECORD: [id number] :46 LOCATION:.[facility] ADMISSION DATE: SURGEON: TOBY HURTADO MD DATE OF OPERATION: 03/24/2019 SURGEON: Toby Hurtado MD ANESTHESIA: TIVA by Jordan Hannon CRNA. DIAGNOSIS: Bladder outlet obstruction with recurrent urinary tract infections. PROCEDURES: Cystoscopy, bladder neck incision. FINDINGS: No urethral strictures, tight bladder neck anastomotic stricture. ESTIMATED BLOOD LOSS: None. 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 Cirilo Lobato on 11/28/2018. Prior to this, he had cystoscopy by me and I noted a bulbar urethral stricture, which I incised at that time. He has ongoing issues with stress urinary incontinence and erectile dysfunction. He also has recurrent urinary tract infections. The last infection was Enterococcus faecalis, which I treated with amoxicillin. He has a slow urinary flow also. I suspect that he may have recurrence of his urethral stricture and he comes today for cystoscopy and possible direct vision internal urethrotomy. He is not allergic to any medications. He was given [facility] physician relations specialist to the OR. DESCRIPTION OF PROCEDURE: The patient was given IV sedation. He was placed into lithotomy position and prepped and draped. A 17-Prydeinig cystoscope with 30-degree lens was used for visualization. There are no penile urethral strictures visible. Going up to the bladder neck anastomosis, there is a quite tight ring of fibrosis here. The 17-Prydeinig scope could not enter the lumen of the bladder neck anastomosis. I switched to the optic urethrotome. At the 6 o'clock and the 12 o'clock positions, the incisions were made using the cold knife. This allowed the optic urethrotome to finally enter through the bladder neck anastomosis. A 16-Prydeinig kaibab tip Mcintosh catheter was then placed over a guidewire into the bladder. Once the catheter was in the bladder, the guidewire was removed entirely. The balloon was inflated with 10 cc of sterile water. The patient will have the Mcintosh catheter in for a period of about 1 week and then the catheter will be removed. He has stress urinary incontinence, will probably be worse after this, but eventually he may require an artificial urinary sphincter if it is still an issue. TRANSINT:[id number] Voice Confirmation ID: [id number] DOCUMENT ID: [id number] TOBY HURTADO MD at 0934 CC: [id number] DICTATION DATE: 03/24/19825 CEO: 03/24/19914 [facility] 03/24/19 [place] [id number] [place] [id number]
== END 2019-03-24 09:30 | disposition home or self-care (01) ==
LOC: D.OPS 05:11 → D.PAN 07:30 → D.OPS 07:30 → D.PAN 08:00 → D.OPS 09:30 → D.PAN 10:00
PROVIDERS: Anesthesiology; ATTEND Urology
DX: N32.0 Bladder-neck obstruction (principal); N39.0 Urinary tract infection, site not specified

== ENCOUNTER → 2019-04-01 19:30 | Outpatient (CLI) | payer MEDICARE, BC ==
[2019-03-24 06:56] VITALS: BMI 36.7
== END | disposition home or self-care (01) ==
LOC: D.LABREF 19:30
PROVIDERS: ATTEND Urology
DX: Z98.890 Other specified postprocedural states (principal)